=== PATIENT | female | born 1935 | race Caucasian/White ===

== ENCOUNTER 2019-10-26 13:26 | Inpatient (IN) | payer OTHER, MEDICARE, BC ==
[2019-10-26] MEDS ORDERED: FENTANYL CITRATE INJ/PF 100 MCG/2 ML AMPUL IV ONE ×3 (13:58→20:10)
[2019-10-26] MEDS ORDERED: DIPH/PERTUSS(ACELL)/TETANUS VAC/PF 0.5 ML SYR (>=10YO) IM ONE (13:59)
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
[2019-10-26 14:16] LABS: ABSOLUTE BASOPHILS # (AUTO) 0.1 10^3/uL (0.0-0.2); ABSOLUTE EOSINOPHILS # (AUTO) 0.2 10^3/uL (0.0-0.6); ABSOLUTE LYMPHOCYTES (AUTO) 1.4 10^3/uL (0.5-4.7); ABSOLUTE MONOCYTES (AUTO) 0.5 10^3/uL (0.1-1.4); ABSOLUTE NEUT (AUTO) 7.2 10^3/uL (1.7-8.2); EOSINOPHILS % (AUTO) 2.1 % (0-6); HEMATOCRIT 36.3 % (36.0-47.0); HEMOGLOBIN 12.9 g/dL (12.0-15.5); LYMPHOCYTES % (AUTO) 14.6 % (13-45); MEAN CORPUSCULAR HEMOGLOBIN 32.5 pg (27.0-33.4); MEAN CORPUSCULAR HGB CONC 35.6 g/dL (32.0-36.0); MEAN CORPUSCULAR VOLUME 91 fl (80-97); MONOCYTES % (AUTO) 4.8 % (3-13); PLATELET COUNT 247 10^3/uL (150-450); RED BLOOD COUNT 3.98 10^6/uL (3.72-5.28); RED CELL DISTRIBUTION WIDTH 13.4 % (11.5-14.0); SEGMENTED NEUTROPHILS % (AUTO) 77.5 % (42-78); TOTAL CELLS COUNTED % (AUTO) 100 %; WHITE BLOOD COUNT 9.3 10^3/uL (4.0-10.5)
[2019-10-26 14:19] LABS: INTERNATIONAL RATION (INR) 0.96
[2019-10-26 14:28] LABS: ANION GAP 11 (5-19); BLOOD UREA NITROGEN 15 mg/dL (7-20); CALCIUM 9.8 mg/dL (8.4-10.2); CARBON DIOXIDE 26 mmol/L (22-30); CHLORIDE 95 mmol/L (98-107); GLUCOSE 149 mg/dL (75-110); POTASSIUM 4.2 mmol/L (3.6-5.0)
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
--- NOTE | 2019-10-26 17:15 | EKG REPORT ---
SEVERITY:- NORMAL ECG - SINUS RHYTHM : Confirmed by: Yola Ziegler 26-Oct-2019 17:15:13
[2019-10-26] MEDS ORDERED: DEXTROSE 40% GEL 15 GM TUBE PO PRN ×2 (18:25)
[2019-10-26] MEDS ORDERED: DEXTROSE 50%-WATER 25 GM/50 ML DISP.SYRIN IV PRN ×2 (18:25)
[2019-10-26] MEDS ORDERED: GLUCAGON,HUMAN RECOMB 1 MG INJ SUBCUT PRN (18:25)
[2019-10-26] MEDS ORDERED: OXYCODONE HCL IR 5 MG TABLET PO PRN (18:30)
[2019-10-26] MEDS ORDERED: ONDANSETRON HCL INJ/PF 4 MG/2 ML SDV IV PRN (18:31)
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
--- NOTE | 2019-10-26 19:38 | ADVANCED CARE ---
Attendance: Patient and family members Resuscitation Status: Do Not Resuscitate Discussion: All aspects of code status discussed with patient/POA including cardioversion, chest compressions, and intubation and the patient/POA indicated they wish to be DNR/DNI MPOA is designated as: DaughterHe[facility] Time Spent: Greater than 16 minutes
[2019-10-26] MEDS: ATORVASTATIN CALCIUM 20 MG TABLET PO SCH (22:57)
[2019-10-26] MEDS: KETOROLAC TROMETHAMINE INJ/PF 30 MG/1 ML SDV IV SCH (22:57)
[2019-10-26] MEDS: ACETAMINOPHEN 1,000 MG/100 ML RTUPB IV SCH (22:58)
[2019-10-26] MEDS: FAMOTIDINE INJ/PF 20 MG/2 ML SDV IV SCH (22:58)
[2019-10-26] MEDS: INSULIN LISPRO 100 UNIT/ML 3 ML VIAL SUBCUT SCH (23:01)
[2019-10-26] MEDS: NIFEDIPINE 30 MG TAB.ER.24 PO SCH (23:03)
[2019-10-26] MEDS: NORMAL SALINE 1000 ML 1,000 ML IV PRN (23:04)
[2019-10-27 04:56] LABS: ABSOLUTE BASOPHILS # (AUTO) 0.1 10^3/uL (0.0-0.2); ABSOLUTE EOSINOPHILS # (AUTO) 0.1 10^3/uL (0.0-0.6); ABSOLUTE LYMPHOCYTES (AUTO) 1.4 10^3/uL (0.5-4.7); ABSOLUTE MONOCYTES (AUTO) 0.6 10^3/uL (0.1-1.4); ABSOLUTE NEUT (AUTO) 5.6 10^3/uL (1.7-8.2); BASOPHILS % (AUTO) 0.7 % (0-2); EOSINOPHILS % (AUTO) 1.1 % (0-6); HEMATOCRIT 32.9 % (36.0-47.0); HEMOGLOBIN 11.4 g/dL (12.0-15.5); LYMPHOCYTES % (AUTO) 17.7 % (13-45); MEAN CORPUSCULAR HEMOGLOBIN 32.1 pg (27.0-33.4); MEAN CORPUSCULAR HGB CONC 34.8 g/dL (32.0-36.0); MEAN CORPUSCULAR VOLUME 92 fl (80-97); MONOCYTES % (AUTO) 7.9 % (3-13); PLATELET COUNT 235 10^3/uL (150-450); RED BLOOD COUNT 3.56 10^6/uL (3.72-5.28); SEGMENTED NEUTROPHILS % (AUTO) 72.6 % (42-78); TOTAL CELLS COUNTED % (AUTO) 100 %; WHITE BLOOD COUNT 7.7 10^3/uL (4.0-10.5)
[2019-10-27] MEDS: KETOROLAC TROMETHAMINE INJ/PF 30 MG/1 ML SDV IV SCH ×2 (05:07→14:04)
[2019-10-27] MEDS: ACETAMINOPHEN 1,000 MG/100 ML RTUPB IV SCH ×2 (05:07→14:10)
[2019-10-27] MEDS: NORMAL SALINE 1000 ML 1,000 ML IV PRN ×2 (05:08→09:18)
[2019-10-27 05:20] LABS: ALBUMIN 3.8 g/dL (3.5-5.0); ALKALINE PHOSPHATASE 66 U/L (38-126); AMYLASE 49 U/L (30-110); ANION GAP 11 (5-19); ASPARTATE AMINO TRANSFERASE 26 U/L (14-36); BILIRUBIN,DIRECT 0.3 mg/dL (0.0-0.4); BILIRUBIN,TOTAL 0.6 mg/dL (0.2-1.3); BLOOD UREA NITROGEN 14 mg/dL (7-20); CARBON DIOXIDE 24 mmol/L (22-30); CHLORIDE 96 mmol/L (98-107); GLUCOSE 143 mg/dL (75-110); POTASSIUM 4.6 mmol/L (3.6-5.0); TOTAL PROTEIN 6.4 g/dL (6.3-8.2)
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
[2019-10-27] MEDS: INSULIN LISPRO 100 UNIT/ML 3 ML VIAL SUBCUT SCH ×3 (08:41→16:53)
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
[2019-10-27] MEDS: NIFEDIPINE 30 MG TAB.ER.24 PO SCH (10:12)
[2019-10-27] MEDS: FAMOTIDINE INJ/PF 20 MG/2 ML SDV IV SCH (10:12)
[2019-10-27] MEDS: ASPIRIN 81 MG TABLET, ENT COATED PO SCH (10:13)
[2019-10-27] MEDS: ENOXAPARIN SODIUM INJ 30 MG/0.3 ML DISP.SYRIN SUBCUT SCH (10:13)
[2019-10-27] MEDS: DOCUSATE SODIUM 100 MG CAPSULE PO SCH ×2 (10:14→17:07)
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
[2019-10-27] MEDS ORDERED: INSULIN GLARGINE,HUM.REC.ANLOG 1,000 UNIT/10 ML VIAL (PYX) SUBCUT PRN (20:38)
[2019-10-27] MEDS ORDERED: INSULIN GLARGINE,HUM.REC.ANLOG 1,000 UNIT/10 ML VIAL SUBCUT SCH (22:00)
[2019-10-28] MEDS: INSULIN LISPRO 100 UNIT/ML 3 ML VIAL SUBCUT SCH ×3 (00:18→12:59)
[2019-10-28] MEDS ORDERED: INSULIN GLARGINE,HUM.REC.ANLOG 1,000 UNIT/10 ML VIAL (PYX) SUBCUT ONE (00:18)
[2019-10-28] MEDS: FAMOTIDINE INJ/PF 20 MG/2 ML SDV IV SCH ×2 (00:34→09:25)
[2019-10-28] MEDS: KETOROLAC TROMETHAMINE INJ/PF 30 MG/1 ML SDV IV SCH ×3 (00:34→12:59)
[2019-10-28] MEDS: ATORVASTATIN CALCIUM 20 MG TABLET PO SCH (00:34)
[2019-10-28] MEDS: ACETAMINOPHEN 1,000 MG/100 ML RTUPB IV SCH ×3 (00:44→13:00)
[2019-10-28] MEDS: NORMAL SALINE 1000 ML 1,000 ML IV PRN ×2 (04:39→13:00)
[2019-10-28] MEDS: DOCUSATE SODIUM 100 MG CAPSULE PO SCH (09:20)
[2019-10-28] MEDS: ASPIRIN 81 MG TABLET, ENT COATED PO SCH (09:24)
[2019-10-28] MEDS: ENOXAPARIN SODIUM INJ 30 MG/0.3 ML DISP.SYRIN SUBCUT SCH (09:24)
[2019-10-28] MEDS: NIFEDIPINE 30 MG TAB.ER.24 PO SCH (09:24)
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
[2019-10-28 14:43] VITALS: BP 135/58
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
== END 2019-10-28 16:15 | disposition home or self-care (01) | DRG 185 ==
LOC: ER 13:26 → EH 17:59 → 4S 20:27
PROVIDERS: ATTEND Surgery
PROC: 3E0234Z Introduction of Serum, Toxoid and Vaccine into Muscle, Percutaneous Approach (ICD-10-PCS; principal; 2019-10-26)
DX: S22.41XA Multiple fractures of ribs, right side, initial encounter for closed fracture (principal); V49.49XA Driver injured in collision with other motor vehicles in traffic accident, initial encounter; Y92.410 Unspecified street and highway as the place of occurrence of the external cause; S80.12XA Contusion of left lower leg, initial encounter; I48.0 Paroxysmal atrial fibrillation; E78.5 Hyperlipidemia, unspecified; S80.11XA Contusion of right lower leg, initial encounter; S30.1XXA Contusion of abdominal wall, initial encounter; S20.219A Contusion of unspecified front wall of thorax, initial encounter; S92.251A Displaced fracture of navicular [scaphoid] of right foot, initial encounter for closed fracture; E11.9 Type 2 diabetes mellitus without complications; I10 Essential (primary) hypertension; Z86.73 Personal history of transient ischemic attack (TIA), and cerebral infarction without residual deficits; Z88.5 Allergy status to narcotic agent; Z79.84 Long term (current) use of oral hypoglycemic drugs; Z23 Encounter for immunization; Z90.49 Acquired absence of other specified parts of digestive tract
CPT/HCPCS: 36415; 70450; 71045; 71260; 72125; 72170; 74177; 80048; 80053; 82150; 82962; 83690; 84484; 85025; 85610; 90471; 90715; 93005; 93010; 94799; 96374; 99285; J0131; J1650; J1815; J1885; J3010; J7030; S0028